=== PATIENT | female | born 1940 | race Caucasian/White ===

== ENCOUNTER 2016-06-06 11:18 | Inpatient (IN) | payer MEDICARE ==
[~2016-06-06] VITALS: Ht 157.5 cm; Wt 90.5 kg
--- NOTE | ~2016-06-06 | ECH ---
Transthoracic Echocardiography Report (TTE) Demographics Patient Name ELKE CRUZ Date of Study 06/07/2016 Patient Number [id number] Visit Number [id number] Date of 1940 Room Number 416 Accession Number [id number] Gender Female Age 75 year(s) Referring Francisco Slater MD Phone Manager Dixie Larson [facility] Physician Physician Olive Gooden MD Mule Developer Physician [place] Supervising Ordering Physician Francisco Slater MD, MD/MLP Nurse Stress Stencil Inspector Conclusions Contractility Score Summary Normal Left Ventricular contractility was noted. Summary Technically difficult exam to perform due to patient immobility. The estimated left ventricular ejection fraction is 60-65%. Mild concentric left ventricular hypertrophy. Mildly dilated right ventricle. Mildly reduced right ventricular function. The left atrium is severely dilated by LA volume index measurement. There is no evidence of patent foramen ovale or atrial septal defect by color Doppler. The right atrium is mild to moderately dilated. Moderate mitral valve stenosis. The mean gradient is8.5mmHg. Mild mitral regurgitation by color Doppler. There is mild aortic regurgitation by color Doppler. Mild tricuspid regurgitation by color Doppler. There is moderate pulmonary hypertension. The pulmonary pressure (RVSP) is 47 mmHg. Trivial pulmonic valve regurgitation by color Doppler. Recommendation The patient will be given the results of this study by the physician who ordered the exam. Procedure Type of Study TTE procedure:Echo Complete SF. Procedure Date Date: 06/07/2016 Start: 10:11 AM Technical Quality: Fair due to patient immobility. Indications:Coronary artery disease, Congestive heart failure and paroxysmal a-fib. Additional Indications:positive blood cultures, elevated cardiac enzymes Appropriate Use Criteria: 9 Height: 62 inches Weight: 187 pounds BSA: 1.86 m Rhythm: Sinus with bundle branch block HR: 82 bpm BP: 99/55 mmHg M-Mode/2D Measurements LV Diastolic Dimension: 4.84 cm LV Systolic Dimension: 3.83 cm LV Septum Diastolic: 1.06 cm LV PW Diastolic: 1.01 cm AO Root Dimension: 2.21 cm Cardiac Output: 5.42 l/min LA Dimension: 5 cm Cardiac Index: 2.91 l/min*m RV Diastolic Dimension: 2.73 cm LA volume index: 60 ml/m LVOT: 1.74 cm LVOT VTI: 27.83 cm RV Base: 4.57 cm LV Stroke volume: 66.14 ml RV Mid: 3.08 cm LV Stroke volume index: 35.56 ml/m RV Length: 7.13 cm TAPSE: 1.5 cm TDI-S': 0.7 cm/s Doppler Measurements AV Peak Velocity: 2 m/s MV Peak E-Wave: 2.44 m/s AV Peak Gradient: 16 mmHg MV Peak A-Wave: 1.43 m/s AV Mean Gradient: 9.45 mmHg MV E/A Ratio: 1.71 LVOT Peak Velocity: 1.52 m/s MV P1/2t: 62.6 msec AV Area (Continuity):2.17 cm TR Velocity:3.23 m/s MV Deceleration Time: 161.6 msec TR Gradient:41.73 mmHg MV Area (PHT): 3.52 cm Estimated RAP:5 mmHg PV Peak Velocity: 1.22 m/s Estimated RVSP: 47 mmHg PV Peak Gradient: 5.98 mmHg Estimated PASP: 46.73 mmHg RA Area: 21.51 cm Findings Left Ventricle The left ventricle is normal in size . Mild concentric left ventricular hypertrophy. Diastolic assessment reveals normal relaxation. Right Ventricle Mildly dilated right ventricle. Mildly reduced right ventricular function. Left Atrium The left atrium is severely dilated by LA volume index measurement. There is no evidence of patent foramen ovale or atrial septal defect by color Doppler. Right Atrium The right atrium is mild to moderately dilated. Mitral Valve Moderate mitral valve stenosis. The mean gradient is8.5mmHg. Mild mitral regurgitation by color Doppler. Aortic Valve The aortic valve is mildly sclerotic. There is mild aortic regurgitation by color Doppler. Tricuspid Valve Normal appearing tricuspid valve. Mild tricuspid regurgitation by color Doppler. There is moderate pulmonary hypertension. The pulmonary pressure (RVSP) is 47 mmHg. Pulmonic Valve Normal pulmonic valve structure and function. Trivial pulmonic valve regurgitation by color Doppler. Pericardial Effusion No evidence of pericardial effusion. Miscellaneous Visualized portions of the aortic root and ascending aorta appear normal in size. Pleural Effusion No evidence of pleural effusion. Contractility Score LV regional wall motion:(0-Non visualized 1-Normal 2-Hypokinesis 3-Akinesis 4-Dyskinesis 5-Aneurysm) Signature
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
[~2016-06-06 11:18] MED LIST: ACIDOPHILUS LACT1 GM PO; BIOFREEZE89 ML TP; CORDARONE DPS200 MG PO; CYMBALTA30 MG PO; HYDROCODONE 5MG/5 MG PO; LIDODERM PATC1 PATCH TP; MELATONIN1 MG PO; MIRALAX PACKET17 GM PO; MYCOSTATIN PWD15 GM TP; NOVOLOG100 UNIT/2 SQ; ORGAN-I NR200 MG PO; PRILOSEC DPS20 MG PO; PRO-AMATINE2.5 MG PO; PULMICORT0.5 MG/2 M IH; RENAGEL800 MG PO; REQUIP DPS2 MG PO; SENSIPAR30 MG PO; SYNTHROID DP0.025 MG PO; SYNTHROID DPS0.2 MG PO; TYLENOL DPS325 MG PO; VENELEX OINTMEN60 GM TP; VITAMIN D50000 UNIT PO; ZANAFLEX4 MG PO; ZOCOR DPS20 MG PO; ZOFRAN4 MG PO; [UNRECOGNIZED DRUG - OTHER] IH
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
--- NOTE | 2016-06-09 12:45 | CO ---
ADMIT: 06/07/2016 RM/LOC: 416 [facility] MR#: [id number] 2620 [facility] [address] [place] [phone] ELKE CRUZ [address] [place] [address] Consultation SEX: F AGE: 75 : 1940 DATE OF CONSULTATION: 06/07/2016 ATTENDING PHYSICIAN: Jose Singh CONSULTING PHYSICIAN: Stoney Galloway MD REASON FOR CONSULTATION: End-stage renal disease, on hemodialysis. HISTORY OF PRESENT ILLNESS: The patient is a 75-year-old female, who lives in [place]. She has a history of end-stage renal disease, and has been on dialysis for about 10 years now. She does home hemodialysis and generally runs 5 treatments a week. Her last treatment was Monday night. She presented to the hospital in [place] with left wrist pain. She was eventually sent over to [facility] for weakness and inpatient management. She has gram-positive bacteremia and is receiving IV antibiotics. Her predominant complaint is left wrist pain and extreme weakness. She otherwise denies any complaints. REVIEW OF SYSTEMS: A complete review of systems is negative in detail except as mentioned in history of present illness above. PAST MEDICAL HISTORY: 1. Hypertension. 2. End-stage renal disease that she states is secondary to hypertensive nephrosclerosis/NSAID nephropathy. She is on home hemodialysis, access is a left upper arm AV fistula. 3. Cervical fracture. 4. Restless legs syndrome. 5. Atrial fibrillation, on anticoagulation. 6. Dyslipidemia. 7. GERD. 8. Diabetes type 2. 9. Obstructive sleep apnea. 10.Knee and hip replacement. FAMILY HISTORY: Father had heart disease. Her daughter has type 1 diabetes, and is on dialysis as well. SOCIAL HISTORY: She is and lives with her at home. Denies any ongoing tobacco, alcohol, or recreational drug use. ALLERGIES: GILA INHIBITORS, HYDROXYZINE, CETIRIZINE, MORPHINE, CODEINE, AND TENORMIN. PHYSICAL EXAMINATION: VITAL SIGNS: Temperature 96.8 Fahrenheit, pulse 79, blood pressure 105/59. GENERAL: She is comfortable in the bed. HEENT: Head is nontraumatic and normocephalic. Extraocular movements are intact. Pale conjunctivae. Dry mucosa. ADMIT: 06/07/2016 RM/LOC: 416 [facility] MR#: [id number] [address] [address] ELKE CRUZ [address] [place] [address] Consultation SEX: F AGE: 75 : 1940 NECK: Supple without any lymphadenopathy. LUNGS: Clear to auscultation bilaterally. ABDOMEN: Soft, nontender. ACCESS: Left upper arm AV fistula. She has button holes in place. No discharge of pus. LABORATORY DATA: Reviewed. BMP with sodium 130, potassium 4.8, CO2 of 23, creatinine 6.6, BUN 73, and albumin 2.8. Hemoglobin is 9.7 with a WBC count of 21. Her blood cultures x2 showed gram-positive cocci, preliminary may be Enterococcus faecalis. ASSESSMENT/PLAN: 1. End-stage renal disease, on hemodialysis. 2. Gram-positive cocci bacteremia. 3. Azotemia. 4. Anemia and chronic kidney disease. I will plan for hemodialysis today. Orders have been placed in the chart. I will give her some erythropoietin stimulating agents on dialysis as well for her anemia. I will check iron stores too. I will defer antibiotics to primary and appears that Infectious Disease has been consulted. As far as her medications are concerned, I will change her morphine over to Dilaudid. Thank you for this consultation. Please do not hesitate to contact with any questions. Stoney Galloway MD/ ellen JOB #: [id number] CC: Jose Singh, Attending Physician Fernando Teague, Family Physician
--- NOTE | 2016-06-10 09:36 | CO ---
ADMIT: 06/07/2016 RM/LOC: 416 [facility] MR#: [id number] 2620 [facility] [address] [place] [phone] ELKE CRUZ [address] [place] [address] Consultation SEX: F AGE: 75 : 1940 DATE OF CONSULTATION: 06/07/2016 ATTENDING PHYSICIAN: Jose Singh CONSULTING PHYSICIAN: Yesenia Ray MD REASON FOR CONSULT: Questionable septic arthritis of the left wrist. Thank you Dr. Singh for the consult and involving me in this patient's care. HISTORY OF PRESENT ILLNESS: Ms. Cruz is a 75-year-old woman who presented to the hospital today with complaint of feeling fatigued and tired the since last 1 week. She has history of end-stage renal disease and does hemodialysis at home in [place]. History was obtained from the daughter. Per her daughter, since the last 1 week she had extreme weakness and fatigue and not feeling well. It was associated with subjective fevers and chills. She also noticed worsening swelling and pain in the left wrist and decreased range of motion. She denies any known trauma to the left wrist. She was found to have elevated sedimentation rate more than 100, and her admission blood cultures grew gram- positive cocci, Enterococcus faecalis. An x-ray of the left wrist was done which did not show any fracture. She also has history of bilateral knee replacement, the left one was just replaced three months back for the second time. She also has bilateral hip replacement. She also had cervical spine fractures, status post fixation around one year back. At present, her only complaint is pain all over the body. PAST MEDICAL HISTORY: 1. End-stage renal disease, on hemodialysis. 2. Diabetes mellitus. 3. Hypertension. 4. Severe osteoarthritis. 5. Osteoporosis. 6. Atrial fibrillation on chronic anticoagulation. She reports blood clot on the mitral valve. 7. Restless legs syndrome. 8. Hyperlipidemia. 9. GERD. 10.Sleep apnea. 11.Obesity. SOCIAL HISTORY: She lives at home with her , and has a pet dog. FAMILY HISTORY: Significant for heart disease in her father. ALLERGIES: NO KNOWN DRUG ALLERGIES. CURRENT MEDICATIONS: Include: 1. Benadryl. 2. Cordarone. ADMIT: 06/07/2016 RM/LOC: 416 [facility] MR#: [id number] [address] [address] [facility] [address] [place] [address] Consultation SEX: F AGE: 75 : 1940 3. Nephro-Jean. 4. Synthroid. 5. Mycostatin powder. 6. Zosyn 3.375 g every 12 hours. REVIEW OF SYSTEMS: A 10-point review of systems negative except as mentioned in the HPI. PHYSICAL EXAMINATION: VITAL SIGNS: Current temperature 97.8, heart rate 79, respirations 12, blood pressure 105/59, and 98% on 2 L. GENERAL: No acute distress. HEENT. Head, normocephalic and atraumatic. Extraocular movements intact. Oral mucosa dry. LYMPH: No palpable anterior/posterior cervical or supraclavicular lymphadenopathy. CHEST: Decreased breath sounds bilaterally. No wheezes, rales, or rhonchi. CARDIOVASCULAR: S1 and S2 heard. A 3/6 systolic murmur. ABDOMEN: Soft and nontender. Active bowel sounds. MUSCULOSKELETAL: Left wrist is swollen, increased warmth, and tenderness to palpation. Normal range of motion at the elbow joint. SKIN: There is diffuse erythema on the left knee and fingers as well as left leg. There is diffuse intertrigo under her pannus within the groin folds. PSYCH: Normal affect. Memory intact. DATA REVIEW: Per HPI, [place] [address], hemoglobin 9.7, platelet count 255. INR is 3. BMP shows sodium of 130. ESR is 115. ASSESSMENT AND PLAN: 1. Enterococcus faecalis bacteremia likely possible source is gastrointestinal/genitourinary. At this time, I will continue Zosyn and also add vancomycin until the susceptibilities are available. We will repeat blood cultures in the morning. ADMIT: 06/07/2016 RM/LOC: 416 [facility] MR#: [id number] [address] [address] [facility] [address] [place] [address] Consultation SEX: F AGE: 75 : 1940 2. Questionable left wrist septic arthritis. She was evaluated by Rheumatology and it is likely septic arthritis per them. She will need arthrocentesis and Orthopedics has been consulted at this time. Given her multiple prosthetic joints, I am also concerned about seeding her other joints as well. 3. End-stage renal disease, on hemodialysis via left arm AV fistula. If the fistula does not working properly, we will do ultrasound Dopplers to rule out any septic thrombophlebitis. 4. Status post recent left TKA (total knee amputation). 5. Stage II decubitus ulcer. 6. Hypothyroidism. Thank you for the consult, and I will continue to follow the patient. Yesenia Ray MD/ ellen JOB #: [id number] CC: Jose Singh, Attending Physician Fernando Teague, Family Physician
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
--- NOTE | 2016-06-23 11:55 | DS ---
ADMIT: 06/07/2016 RM/LOC: 528 [facility] MR#: [id number] [address] [address] ELKE CRUZ [address] [place] [address] Discharge Summary SEX: F AGE: 75 : 1940 ADMISSION DATE: 06/07/2016 DISCHARGE DATE: 06/14/2016 CONSULTATIONS: 1. Mann Medina MD, Rheumatology. 2. Abelino James M.D., Orthopedic Surgery. 3. Stoney Galloway MD, Nephrology. 4. Yesenia Ray MD, Infectious Disease. FINAL DIAGNOSES: 1. E. faecalis (Enterococcus faecalis) bacteremia. 2. Avascular necrosis of left wrist. 3. End-stage renal disease, requiring dialysis. 4. Diabetes, type 2. 5. Atrial fibrillation on anticoagulation. 6. Weakness. 7. Hypertension. 8. Possible left septic joint. REASON FOR ADMISSION: The patient is a 75-year-old female who normally does home hemodialysis. Otherwise, it does not sound like she follows very closely in the clinic. She presented to the ER with increasing weakness, could get around anymore at home. Admitted for further stabilization. HOSPITAL COURSE: The patient was admitted. Extensive workup obtained. Ultimately she grew Enterococcus faecalis out of her blood. Repeat cultures were negative. She had some left wrist pain although given intermittent history of some trauma to her left wrist. Evaluations included bone scan, MRI, and x-ray. Ultimately, even had aspiration and arthrocentesis by Orthopedic Surgery without any fluid obtainable. The patient's sed rate was well over 100. Concern was for septic left arthritis. She was found to have AVN of that left wrist. She was treated with antibiotics. After much discussion with Infectious Disease, we will treat presumptively for left septic wrist arthritis, osteomyelitis. She will have an extended antibiotic ADMIT: 06/07/2016 RM/LOC: 528 [facility] MR#: [id number] 2620 [facility] [address] [place] [phone] ELKE CRUZ [address] [place] [address] Discharge Summary SEX: F AGE: 75 : 1940 course. She was seen by Nephrology during her stay for her hemodialysis needs and she tolerated it well. Her weakness improved during the hospitalization although not strong enough yet to return home. Arrangements were made for her to go to inpatient rehab. She was agreeable to this. Discharge medications: Please see discharge MAR, which I reviewed. She will follow up with her primary care provider who is Dr. Teague in [place] at her time of her discharge. Jose Singh MD/ nicola JOB #: [id number] CC: Jose Singh MD, Attending Physician Fernando Teague MD, Family Physician
[2016-10-12] MEDS ORDERED: ACIDOPHILUS100 M1 PO (14:56)
[2016-10-12] MEDS ORDERED: PROAIR RESPICL90 MCG IH (14:56)
[2016-10-12] MEDS ORDERED: VITAMIN D250000 UNIT PO (14:58)
[2016-10-12] MEDS ORDERED: BUDESONIDE0.5 MG/2 M IH (14:58)
[2016-10-12] MEDS ORDERED: MELATONIN1 MG PO (14:59)
[2016-10-12] MEDS ORDERED: NITROSTAT0.4 MG SL (15:00)
[2016-10-12] MEDS ORDERED: ZOFRAN4 MG PO (15:01)
[2016-10-12] MEDS ORDERED: MIRALAX PACKET17 GM PO (15:01)
[2016-10-12] MEDS ORDERED: REQUIP DPS0.5 MG PO (15:01)
[2016-10-12] MEDS ORDERED: RESTORIL DPS30 MG PO (15:02)
[2016-10-12] MEDS ORDERED: RENAGEL800 MG PO (15:02)
[2016-10-12] MEDS ORDERED: SENSIPAR30 MG PO (15:02)
[2016-10-12] MEDS ORDERED: SANTYL15 GM TP (15:03)
[2016-10-12] MEDS ORDERED: SILVADENE20 GM TP (15:03)
[2016-10-12] MEDS ORDERED: NYSTATIN CREAM15 GM TP (15:04)
== END 2016-06-14 11:10 | disposition short-term general hospital (02) | DRG 871 ==
LOC: ER 11:18 → 4PCU 14:55 → 5MS 06-13 23:45
PROVIDERS: ADMIT Internal Medicine
PROC: 5A1D60Z (ICD-10-PCS; principal; 2016-06-07)
DX: A41.81 Sepsis due to Enterococcus (principal); N18.6 End stage renal disease; I13.2 Hypertensive heart and chronic kidney disease with heart failure and with stage 5 chronic kidney disease, or end stage renal disease; L89.323 Pressure ulcer of left buttock, stage 3; E11.22 Type 2 diabetes mellitus with diabetic chronic kidney disease; M87.08 Idiopathic aseptic necrosis of bone, other site; I48.91 Unspecified atrial fibrillation; L03.90 Cellulitis, unspecified; I50.9 Heart failure, unspecified; G25.81 Restless legs syndrome; L89.610 Pressure ulcer of right heel, unstageable; K21.9 Gastro-esophageal reflux disease without esophagitis; D63.1 Anemia in chronic kidney disease; E78.5 Hyperlipidemia, unspecified; B35.6 Tinea cruris; S50.12XA Contusion of left forearm, initial encounter; X58.XXXA Exposure to other specified factors, initial encounter; E03.9 Hypothyroidism, unspecified; M85.80 Other specified disorders of bone density and structure, unspecified site; E66.9 Obesity, unspecified; G47.33 Obstructive sleep apnea (adult) (pediatric); Z96.643 Presence of artificial hip joint, bilateral; Z99.2 Dependence on renal dialysis; Z95.1 Presence of aortocoronary bypass graft; Z96.653 Presence of artificial knee joint, bilateral

== ENCOUNTER 2016-06-14 10:03 | Inpatient (IN) | payer MEDICARE ==
[~2016-06-14] VITALS: Ht 157.5 cm; Wt 81.9 kg
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
--- NOTE | 2016-06-23 22:02 | NUR ---
DAY SHIFT SUMMARY: SEE OT NOTES FOR GROOMING AND DRESSING; NEEDS ASSIST TO OPEN CONTAINERS TO EAT; MOD ASSIST OF 1 W/ GAITBELT AND PLATFORM WALKER TO TRANSFER BED/W/C/CHAIR; TOTAL ASSIST FOR W/C PROPULSION
--- NOTE | 2016-06-26 21:22 | NUR ---
WEEKEND DAY SHIFT SUMMARY: SEE OT FIM AND NOTES FOR GROOMING AND DRESSING ON SAT AND SUN. CONTAINERS MUST BE OPENED AND MEAL SETUP FOR EATING; TOTAL ASSIST FOR TOILETING-NEEDS MUCH ENCOURAGEMENT TO HELP SELF EVEN WITH PAIN CONTROLLED; MAKES NO URINE-DIALYSIS PT; INVOL OF SMEAR OF BM X1 ON AWAKENING BOTH MORNINGS (DURING THE DAY WEARS ONLY SHORTS OR CAPRIS-REFUSES TO WEAR UNDERWEAR; MOD ASSIST OF 1 FOR BED/W/C/CHAIR TRANSFERS. TOTAL ASSIST FOR W/C PROPULSION
--- NOTE | 2016-06-28 15:26 | CO ---
ADMIT: 06/14/2016 RM/LOC: 615 [facility] MR#: [id number] [address] [facility] [address] [place] [id number] ELKE CRUZ [address] [place] [address] Consultation Report SEX: F AGE: 75 : 1940 Corrected: 06/23/2016 1010 njv DATE OF CONSULTATION: 06/21/2016 ATTENDING PHYSICIAN: Mina Bean CONSULTING PHYSICIAN: Abelino James MD SUBJECTIVE: A 75-year-old female, known to our Orthopedic Practice for history of left wrist AVN of the lunate, in the IRU complaining of left shoulder pain as well. The left wrist pain has improved with decrease in her edema and continuation of her antibiotics. She has previously been seen by Dr. James for the left wrist. MRI did show no evidence of abscess and was positive for findings of Kienbock's disease. She does report now that she is having some left shoulder pain. She has been working on therapy for other things so wanted that evaluated. PHYSICAL EXAM: Left upper extremity first of the shoulder shows her skin is intact. She has soreness with impingement testing with passive motion. No gautam remarkable increase in the pain, just mostly generalized soreness. No deformity, no effusion, no redness, no signs of infection. She has weakness secondary to the soreness distal on her humerus. She has intact fistula. No signs of infection. Further down at the wrist and hand shows that she has diffuse erythema about the dorsum of the hand. She has edema, moderate, it is improved per her and therapist's recollection since her stay here again. She does not have much for pain as far as with gentle range of motion about the wrist. No effusion appreciable or area of abscess. Neurovascular status is at baseline. ASSESSMENT: 1. Left shoulder impingement. 2. Left wrist lunate avascular necrosis. ADMIT: 06/14/2016 RM/LOC: 615 [facility] MR#: [id number] [address] [address] ELKE CRUZ [address] [place] [address] Consultation Report SEX: F AGE: 75 : 1940 3. Left hand edema, actively being treated for cellulitis. PLAN: In regard to her shoulder, we will have her continue with her exercises and therapy working on gentle motion and impingement symptoms. Go ahead and get an x-ray of her humerus. Actually, we do not have anything underlying so if negative, would continue as above. With regard to the wrist and hand, continue with the wrist splint and the edema glove. That does seem to be getting quite a bit better, so we will continue with that. We will continue to follow her during her stay. Paolo Blanca PA-C / Abelino James MD / ellen JOB #: [id number] CC: Mina Bean, Attending Physician Fernando Teague, Family Physician Corrected: 06/23/2016 1010 njv
--- NOTE | 2016-07-08 08:10 | OR ---
ADMIT: 06/14/2016 RM/LOC: 615 [facility] MR#: [id number] [address] [address] ELKE CRUZ [address] [place] [address] Operative/Delivery Room Report SEX: F AGE: 75 : 1940 SURGERY DATE: 07/06/2016 SURGEON: Dot Mayberry MD PREOPERATIVE DIAGNOSES: 1. Left hand complex regional pain syndrome. 2. Chronic pain. POSTOPERATIVE DIAGNOSES: 1. Left hand complex regional pain syndrome. 2. Chronic pain. PROCEDURE PERFORMED: Left stellate ganglion block. INDICATION FOR PROCEDURE: The patient is a pleasant female with history of chronic left-sided hand pain secondary to complex regional pain syndrome, comes here for planned left stellate ganglion block. PROCEDURE IN DETAIL: After the patient was seen in the preoperative area vitals were taken.Prior to procedure the risks, benefits and alternative therapies were discussed at length. The patient was taken to fluoroscopy suite and placed on the fluoroscopy table in supine position. Pressure points where well-padded to comfort, monitor applied and a timeout was performed. Next, a proper anatomic area was widely prepped with ChloraPrep and draped in sterile fashion. Under fluoroscopic guidance using AP view, a 20 gauge 3.5 inch curved tipped spinal needle was passed through the skin, anesthetized with 1% lidocaine without epi into the C6 vertebral body on the left side. Once the needle tip contract was achieved, 3 mL Isovue preservative free contrast was injected showing clear prevertebral spread over the stellate ganglion. No vascular or intrathecal uptake was noted. Following this, 6 mL of solution consisting of 0.25% bupivacaine And 10 mg dexamethasone was carefully injected. A sterile dressing was placed over the puncture site. Patient tolerated the procedure without any complication. Patient was returned to the postprocedure area. The patient recovered nicely. Planpatient was examined 10 minutes of the patient had approximately 70% pain reduction. Discharge instructions were given follow-up scheduled. The patient was discharged to inpatient stay. Dot Mayberry MD/ ellen JOB #: [id number] CC: Mina Bean, Attending Physician Fernando Teague, Family Physician
[2016-07-08] MEDS ORDERED: BENADRYL-DPS50 MG PO (20:52)
[2016-07-08] MEDS ORDERED: PRO-AMATINE2.5 MG PO (20:53)
[2016-07-08] MEDS ORDERED: CORDARONE DPS200 MG PO (20:53)
[2016-07-08] MEDS ORDERED: COUMADIN5 MG PO (20:53)
[2016-07-08] MEDS ORDERED: NEPHRO-VITE1 TAB PO (20:53)
[2016-07-08] MEDS ORDERED: LEVOTHYROXINE200 MCG PO (20:54)
[2016-07-08] MEDS ORDERED: SYNTHROID DP0.025 MG PO (20:54)
[2016-07-08] MEDS ORDERED: MAPAP PM (TYLEN1 TAB PO (20:55)
[2016-07-08] MEDS ORDERED: MYCOSTATIN PWD15 GM TP (20:56)
[2016-07-08] MEDS ORDERED: OXY IR DPS5 MG PO (20:56)
[2016-07-08] MEDS ORDERED: TYLENOL DPS325 MG PO (20:56)
--- NOTE | 2016-08-15 09:55 | DS ---
ADMIT: 06/14/2016 RM/LOC: 615 [facility] MR#: [id number] [address] [address] ELKE CRUZ [address] [place] [address] General Discharge Summary SEX: F AGE: 75 : 1940 ADMISSION DATE: 06/14/2016 DISCHARGE DATE: 07/08/2016 DISCHARGE DIAGNOSIS: Debility 16, debility noncardiac, nonpulmonary, R53.1 weakness, onset 06/07/2016, comorbid conditions per initial H and P. Other diagnoses per hospital course below. HOSPITAL COURSE: Please see my initial H and P for details prior to transfer to the IRU. Pain and bowel regimen were adjusted. Lab was monitored regularly. EdemaWear used for edema. Coumadin continued for prophylaxis. Stage II pressure ulcer left buttock two ulcers. Wound Care consult. SensiCare, low air-loss mattress, repositioning, chair air cushion, floating heels off surface. Nephrology followed the patient. Lab monitored for hemodialysis. MRI was re-read in addition to the bone scan due to left wrist concerning for RSD or CRPS. Discontinued the left wrist splint. Tried desensitization. Edema glow. Multimodality desensitization. Contrast baths. E-stim. TENS unit. Tried nortriptyline and gabapentin for pain control. Senokot-S for constipation. Dietitian followed to optimize nutrition. Pharmacy followed to optimize medication management. INR was monitored and Coumadin adjusted based on that. Left wrist icing p.r.n. in addition to Voltaren gel topically. OT did decompression glove and range of motion desensitization. TENS unit. E-stim. Feosol and vitamin C for iron deficiency. MiraLAX for constipation. Wound Care reconsulted from acute Omnipen antibiotic adjusted for bacteremia. Hemoglobin A1c checked for diabetes. Questionable OxyIR used for pain. Nortriptyline increased. Benadryl and Tylenol changed to p.r.n. Orthopedics saw the patient on 06/21/2016. Ordered x-rays of the 2 views of left humerus and splint to the left wrist Requip restarted per the patient's request for restless leg syndrome. Diazepam started in the morning for anxiety. Wound Care followed up on 06/22/2016. Accu-Cheks q.a.c. and at bedtime and low-dose sliding scale insulin. Mycostatin changed to Tinactin t.i.d. for tinea corporis. Ortho followed up on 06/23/2016. Diet changed from renal to ADA. Levemir started at night for diabetes management for hyperglycemia. P.r.n.'s for constipation, suppository, warm water enema. Miconazole for vaginal candidiasis. Diflucan p.o. for vaginal candidiasis. 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 Pain, swelling, and decreased range of motion from portion of diagnosis, stellate ganglion block for complex regional pain syndrome, which was done after holding Coumadin. MiraLAX for constipation. Wound Care followed up on 06/28/2016. Diabetic diet ensured. TENS unit to the left upper extremity. Levemir increased to 10 units. Heparin dosed while waiting for stellate ganglion block. Levemir increased to 15 units. Heparin held for procedure. Procedure was done, did not help much. Discontinued the heparin and restarted Coumadin after procedure. Requip discontinued as the nortriptyline was adequate for her restless leg syndrome. Use Voltaren gel ADMIT: 06/14/2016 RM/LOC: 615 [facility] MR#: [id number] [address] [address] [address]KE CRUZ [address] [place] [address] General Discharge Summary SEX: F AGE: 75 : 1940 for the left wrist, but also left shoulder as needed. The patient was medically stable at the time of discharge. Please see IRU interdisciplinary discharge summary for details regarding progress in therapy. DISCHARGE DISPOSITION: [facility] skilled nurse facility for continued subacute therapy. FOLLOWUP: To be determined, Linda Espinal, on 07/15/2016. INR on 07/13/[address] Singh of Orthopedics as scheduled. DISCHARGE MEDICATIONS: Please see discharge med rec. Amoxicillin to continue through 07/19/2016 and then discontinue, was given #37 of OxyIR 5 mg. Mina Bean MD/ modl JOB #: [id number] CC:
[2016-10-12] MEDS ORDERED: ACIDOPHILUS100 M1 PO (14:56)
[2016-10-12] MEDS ORDERED: PROAIR RESPICL90 MCG IH (14:56)
[2016-10-12] MEDS ORDERED: BUDESONIDE0.5 MG/2 M IH (14:58)
[2016-10-12] MEDS ORDERED: VITAMIN D250000 UNIT PO (14:58)
[2016-10-12] MEDS ORDERED: MELATONIN1 MG PO (14:59)
[2016-10-12] MEDS ORDERED: NITROSTAT0.4 MG SL (15:00)
[2016-10-12] MEDS ORDERED: MIRALAX PACKET17 GM PO (15:01)
[2016-10-12] MEDS ORDERED: REQUIP DPS0.5 MG PO (15:01)
[2016-10-12] MEDS ORDERED: ZOFRAN4 MG PO (15:01)
[2016-10-12] MEDS ORDERED: SENSIPAR30 MG PO (15:02)
[2016-10-12] MEDS ORDERED: RESTORIL DPS30 MG PO (15:02)
[2016-10-12] MEDS ORDERED: RENAGEL800 MG PO (15:02)
[2016-10-12] MEDS ORDERED: SANTYL15 GM TP (15:03)
[2016-10-12] MEDS ORDERED: SILVADENE20 GM TP (15:03)
[2016-10-12] MEDS ORDERED: NYSTATIN CREAM15 GM TP (15:04)
== END 2016-07-08 16:58 | DRG 945 ==
LOC: 6IRU 11:05
PROVIDERS: ADMIT Physical Medicine & Rehabilitation
PROC: F07Z9ZZ Gait Training/Functional Ambulation Treatment (ICD-10-PCS; principal; 2016-06-14)
PROC: 5A1D60Z (ICD-10-PCS; 2016-06-15)
PROC: F08Z1FZ Dressing Techniques Treatment using Assistive, Adaptive, Supportive or Protective Equipment (ICD-10-PCS; 2016-07-06)
PROC: 3E0T3CZ (ICD-10-PCS; 2016-07-06)
PROC: F08Z2FZ Grooming/Personal Hygiene Treatment using Assistive, Adaptive, Supportive or Protective Equipment (ICD-10-PCS; 2016-07-06)
DX: R53.81 Other malaise (principal); N18.6 End stage renal disease; L89.322 Pressure ulcer of left buttock, stage 2; R78.81 Bacteremia; E11.22 Type 2 diabetes mellitus with diabetic chronic kidney disease; I12.0 Hypertensive chronic kidney disease with stage 5 chronic kidney disease or end stage renal disease; E87.1 Hypo-osmolality and hyponatremia; B35.4 Tinea corporis; M87.9 Osteonecrosis, unspecified; G90.512 Complex regional pain syndrome I of left upper limb; I48.91 Unspecified atrial fibrillation; F32.9 Major depressive disorder, single episode, unspecified; D63.1 Anemia in chronic kidney disease; K59.00 Constipation, unspecified; D50.9 Iron deficiency anemia, unspecified; G89.4 Chronic pain syndrome; L30.4 Erythema intertrigo; M62.81 Muscle weakness (generalized); E78.5 Hyperlipidemia, unspecified; F41.9 Anxiety disorder, unspecified; G47.00 Insomnia, unspecified; B37.3 Candidiasis of vulva and vagina; M21.372 Foot drop, left foot; R60.9 Edema, unspecified; G25.81 Restless legs syndrome; M75.42 Impingement syndrome of left shoulder; K21.9 Gastro-esophageal reflux disease without esophagitis; E03.9 Hypothyroidism, unspecified; E11.65 Type 2 diabetes mellitus with hyperglycemia; Z96.643 Presence of artificial hip joint, bilateral; Z96.653 Presence of artificial knee joint, bilateral; Z79.01 Long term (current) use of anticoagulants; Z99.2 Dependence on renal dialysis